=== PATIENT | male | born 1960 | race Caucasian/White ===

== ENCOUNTER 2017-02-05 22:14 | Emergency (ER) | payer BC ==
[~2017-02-05] VITALS: Ht 177.8 cm; Wt 72.6 kg
[2017-02-05] MEDS ORDERED: XANAX0.25 MG ORAL (22:22)
[2017-02-05 22:25] VITALS: BP 85/55
[2017-02-05 23:04] LABS: EOSINOPHILS % (AUTO) 1.3 % (0.0-3.0); LYMPHOCYTES % (AUTO) 36.6 % (20.0-45.0); MEAN CORPUSCULAR HGB CONC 34.3 G/DL (32.0-36.0); MEAN CORPUSCULAR VOLUME 90 FL (80-99); MEAN PLATELET VOLUME 6.2 FL (6.5-10.1); MONOCYTES % (AUTO) 10.4 % (1.0-10.0); NEUTROPHILS % (AUTO) 50.6 % (45.0-75.0); PLATELET COUNT 266 K/UL (150-450); RED BLOOD COUNT 3.33 M/UL (4.70-6.10); RED CELL DISTRIBUTION WIDTH 11.8 % (11.6-14.8); WHITE BLOOD COUNT 4.7 K/UL (4.8-10.8)
[2017-02-05 23:13] LABS: TROPONIN I < 0.30 ng/mL (<=0.30)
[2017-02-05 23:16] LABS: ALBUMIN/GLOBULIN RATIO 1.3 (1.0-2.7); CALCIUM 8.8 mg/dL (8.6-10.2); CREATININE 2.2 mg/dL (0.7-1.2); GLOMERULAR FILTRATION RATE 31.2 mL/min (>60); POTASSIUM 3.5 mEQ/L (3.4-4.9)
[2017-02-05 23:27] LABS: CKMB 1.6 ng/mL (< 6.7)
[2017-02-05] MEDS ORDERED: IBUPROFEN (23:41)
[2017-02-05] MEDS ORDERED: PROZAC (23:41)
[2017-02-05] MEDS ORDERED: SELZENTRY (23:42)
[2017-02-05 23:44] VITALS: BP 88/71
[2017-02-06 00:47] VITALS: BP 102/70
[2017-02-06 01:08] LABS: APPEARANCE,URINE CLEAR; KETONES,URINE NEGATIVE (NEGATIVE); LEUKOCYTE ESTERASE ,URINE 3+ (NEGATIVE); NITRITE,URINE POSITIVE (NEGATIVE); PH,URINE 6.5 (4.5-8.0); PROTEIN,URINE 1+ (NEGATIVE); UROBILINOGEN,URINE NORMAL MG/DL (0.0-1.0)
--- NOTE | 2017-02-06 01:14 | Emergency Room Report ---
History of Present Illness General Chief Complaint: Generalized Weakness Source: Patient, EMS Present Illness HPI Is a 56-year-old male with a history of HIV and is taking medication. Prior load is normal. Patient presents with syncope and head injury. He said he stood up and had a syncopal episode and hit his head. Because of consciousness. This happened several times her ready. Is working him up. On arrival his blood pressure was low. Patient denies any other injury. Denies any alcohol and drugs. Only ate some oatmeal today. Allergies: Coded Allergies: No Known Allergies (Unverified , 02/05/17) Patient History Past Medical History: see triage record, old chart reviewed, HIV Past Surgical History: other Pertinent Family History: none Social History: Denies: smoking Immunizations: other Reviewed Nursing Documentation: PMH: Agreed, PSxH: Agreed Nursing Documentation-PMH Past Medical History: No History, Except For Hx Gastrointestinal Problems: Yes - Bladder issues Review of Systems Constitutional: Reports: weakness Eye: Denies: blurred vision, eye pain ENT: Denies: ear pain, nose congestion, throat swelling Respiratory: Denies: cough, shortness of breath Cardiovascular: Denies: chest pain, palpitations Gastrointestinal: Denies: abdominal pain, diarrhea, nausea, vomiting Musculoskeletal: Denies: back pain, joint pain Skin: Denies: rash Neurological: Denies: headache, numbness Endocrine: Denies: increased thirst, increased urine Hematologic/Lymphatic: Denies: easy bruising All Other Systems: negative except mentioned in HPI Physical Exam Vital Signs Date Time Temp Pulse Resp B/P Pulse Ox O2 Delivery O2 Flow Rate FiO2 02/05/17 22:18 76 18 122/58 99 Room Air 02/06/17 00:47 97.0 vitals normal Sp02 EP Interpretation: reviewed, normal General Appearance: well appearing, no apparent distress, alert Head: normocephalic, atraumatic Eyes: bilateral eye EOMI, bilateral eye PERRL ENT: hearing grossly normal, normal pharynx Neck: full range of motion, supple, no meningismus Respiratory: chest non-tender, lungs clear, normal breath sounds Cardiovascular #1: regular rate, rhythm, no murmur Gastrointestinal: normal bowel sounds, non tender, no mass, no organomegaly, no bruit, non-distended Musculoskeletal: back normal, gait/station normal, normal range of motion Psychiatric: mood/affect normal Skin: warm/dry Medical Decision Making Diagnostic Impression: Primary Impression: Episode of generalized weakness Additional Impressions: Syncope and collapse Anemia Qualified Codes: D64.9 - Anemia, unspecified Acute renal failure (ARF) Qualified Codes: N17.9 - Acute kidney failure, unspecified ER Course Patient presents with syncope. Most likely secondary to dehydration vasovagal. Blood pressure initially per EMS was normal. But here was running in the 80 systolic. Came up to normal range after IV fluid. He felt better. No evidence of head injury. No evidence of ACS, PE, dissection. his urinalysis she'll infection. He just finished a course of Bactrim. Most likely resistant and causing hypotension and sepsis. Because of his abnormal kidney function and UTI, I suggest that he be admitted to the hospital. Patient said he felt better now and was to go home. He is competent to make that decision. Explained to them that his kidney function is abnormal. I will send him home with labs from today to show to his doctor. Lab Results Impression labs with elevated creatinine EKG Diagnostic Results Rate: normal Rhythm: NSR ST Segments: no acute changes Rhythm Strip Diag. Results EP Interpretation: yes Rate: 61 Rhythm: NSR, no PVC's, no ectopy Chest X-Ray Diagnostic Results EP Interpretation: Yes Findings: no consolidation, no effusion, no pneumothorax, no acute cardiopulmonary disease Number of Views: 1 CT/MRI/US Diagnostic Results CT/MRI/US Diagnostic Results : Imaging Test Ordered: CT head Impression negative per radiologist Last Vital Signs Date Time Temp Pulse Resp B/P Pulse Ox O2 Delivery O2 Flow Rate FiO2 02/06/17 00:47 97.0 65 15 102/70 100 Room Air Status: improved Disposition: HOME, SELF-CARE Condition: Stable Scripts Cephalexin* (KEFLEX*) 500 Mg Capsule 500 MG ORAL TID, #21 CAP 0 Refills Prov: SALOMÓN SANCHEZ M.D. 02/06/17 Referrals: NOT CHOSEN [facility]/,REFERRING (PCP) Additional Instructions: Followup with your DrCollins in 2 to 3 days. Increase fluid. Return if symptom worsen. SALOMÓN SANCHEZ M.D. Feb 06, 2017 01:14
[2017-02-06 01:22] LABS: AMORPHOUS SEDIMENT,UR MODERATE /LPF; BACTERIA,URINE MODERATE /HPF; WBC,URINE TNTC /HPF (0 - 0)
[2017-02-06] MEDS ORDERED: cefTRIAXone 1 GM in NS 55 ML IVPB ONE (01:30)
[2017-02-06 02:00] VITALS: BP 119/64
[2017-02-06] MEDS ORDERED: KEFLEX500 MG ORAL (02:38)
[2017-02-06 02:47] VITALS: BP 105/68
--- NOTE | 2017-02-06 09:09 | Diagnostic Imaging Report ---
Indications: Head trauma, pain, weakness and dizziness Technique: Continuous helical CT imaging of the brain was performed with nonionic exposure control on a Siemens sensation [address] scanner. Axial and coronal images were reconstructed at 5 mm slice thickness and interval. CTDI volume(s): 70 mGy Total DLP: 1573 mGy-cm Findings: Comparison: None Normal low attenuation is present in the bilateral periventricular white matter. Ventricles, cisterns, and sulci are diffusely prominent. No evidence of mass or hemorrhage, mass effect, midline shift, hydrocephalus, or increased intracranial pressure. Bone window images are unremarkable. Visualized paranasal sinuses and mastoid air cells are clear. IMPRESSION: No evidence of acute intracranial pathology . Minimal chronic microangiopathic changes bilateral periventricular white matter Atrophy, prominent for age. This correlates with preliminary report generated overnight by [employer]. The CT scanner at [facility] is accredited by the [employer] and the scans are performed using protocols designed to limit radiation exposure to as low as reasonably achievable to attain images of sufficient resolution adequate for diagnostic evaluation.
--- NOTE | 2017-02-06 09:57 | Diagnostic Imaging Report ---
Indication: Chest pain, syncope Technique: Single AP view of the chest. Findings: Comparison: None. The bones and extra pulmonary soft tissues, cardiomediastinal silhouette, pulmonary vasculature and parenchyma, and pleural surfaces are unremarkable. IMPRESSION: Negative AP chest.
--- NOTE | 2017-02-08 15:53 | Cardiology Report ---
APPROVED REPORT EKG Measurement Heart [id number] VT [id number] [id number] Unusual P axis, possible ectopic atrial rhythm Abnormal ECG
== END 2017-02-06 02:51 | disposition home or self-care (01) ==
LOC: EDBD 22:14 → EMR 22:30
DX: R53.1 Weakness (principal); R55 Syncope and collapse; D64.9 Anemia, unspecified; N39.0 Urinary tract infection, site not specified; R94.4 Abnormal results of kidney function studies
CPT/HCPCS: 36415; 70450; 71010; 80053; 80300; 81003; 82550; 82553; 82962; 83605; 84484; 85025; 87040; 87086; 93005; 96360; 96361; 96374; 99284; J0696